=== PATIENT | male | born 1960 | race Caucasian/White ===

== ENCOUNTER 2016-12-10 04:18 | Inpatient (IN) | payer OTHER ==
[~2016-12-10] VITALS: Ht 175.3 cm; Wt 78.9 kg
--- NOTE | 2016-12-10 05:25 | NUR ---
to bed 2 ambulatory c/o R ring finger, R wrist, BLE open wound with redness and swelling. pt aaox4 no acute distress noted, resp even and unlabored. pending er md palm.
--- NOTE | 2016-12-10 05:40 | NUR ---
started sl 18g to L ac, bloodwith blood cultures drawn and sent to lab.
--- NOTE | 2016-12-10 05:40 | NUR ---
Note undone in EDM - 12/10/16 at 0601 by ROZ to bed 2 ambulatory c/o R ring finger, R wrist, BLE open wound with redness and swelling. pt aaox4 no acute distress noted, resp even and unlabored. pending er md palm.
[2016-12-10] MEDS ORDERED: IV SET PRIMARY PUMP SET 1 EA INFUS.SET MC ONE ×2 (05:51→08:40)
[2016-12-10] MEDS ORDERED: VANCOMYCIN 1 GM VIAL ONE (05:52)
[2016-12-10 06:00] LABS: BASOPHILS % (AUTO) 0.1 % (0.0-2.0); EOSINOPHILS # (AUTO) 0.1 /CMM (0.0-0.7); EOSINOPHILS % (AUTO) 1.4 % (0.0-6.0); HEMATOCRIT 36 % (39-51); HEMOGLOBIN 11.9 g/dL (13.5-17.5); LYMPHOCYTES # (AUTO) 1.1 /CMM (0.8-4.8); LYMPHOCYTES % (AUTO) 13.5 % (20.0-44.0); MEAN CORPUSCULAR HEMOGLOBIN 30 PG (26.0-33.0); MEAN CORPUSCULAR HGB CONC 33 g/dl (31.0-36.0); MEAN CORPUSCULAR VOLUME 90 fL (80-96); MONOCYTES # (AUTO) 0.9 /CMM (0.1-1.30); MONOCYTES % (AUTO) 10.6 % (2.0-12.0); NEUTROPHILS # (AUTO) 6.1 /CMM (1.8-8.9); NEUTROPHILS % (AUTO) 74.4 % (43.0-81.0); PLATELET COUNT (AUTO) 216 /CMM (150-450); RDW COEFFICIENT OF VARIATION 14.1 (11.5-15.0); WHITE BLOOD COUNT (AUTO) 8.2 K/uL (4.3-11.0)
[2016-12-10] MEDS ORDERED: VANCOMYCIN 1 GM in IV D5W 250 ML IV ONE (06:00)
[2016-12-10 06:11] LABS: CALCIUM, SERUM 8.4 mg/dL (8.5-10.1); CREATININE 0.8 mg/dL (0.6-1.3); POTASSIUM 3.1 mmol/L (3.5-5.1)
[2016-12-10 06:21] LABS: LACTIC ACID 1.2 mmol/L (0.4-2.0)
[2016-12-10] MEDS ORDERED: POTASSIUM CHLORIDE 20 MEQ TAB.PRT.SR PO ONE ×3 (06:25→06:30)
--- NOTE | 2016-12-10 06:29 | NUR ---
REPORT RECEIVED FROM ER NURSE ED
--- NOTE | 2016-12-10 06:30 | NUR ---
report called to m/s yojana wilkins. will transport pt to room 117-1
[2016-12-10] MEDS ORDERED: IV NS 0.9% 1,000 ML IV PRN (06:40)
[2016-12-10] MEDS ORDERED: MAG HYDROX/AL HYDROX/SIMETH 30 ML UDC PO PRN (07:00)
[2016-12-10] MEDS ORDERED: MAGNESIUM HYDROXIDE 30 ML UDC PO PRN (07:00)
[2016-12-10] MEDS ORDERED: ACETAMINOPHEN 325 MG TABLET PO PRN (07:00)
[2016-12-10] MEDS ORDERED: Z GUARD REMEDY 2 OZ OINT TP PRN (07:00)
[2016-12-10] MEDS ORDERED: ZOLPIDEM TARTRATE 5 MG TABLET PO PRN (07:00)
[2016-12-10] MEDS ORDERED: ONDANSETRON HCL/PF 4 MG/2 ML VIAL IVP PRN (07:00)
[2016-12-10 07:06] VITALS: BP 152/87
--- NOTE | 2016-12-10 07:08 | NUR ---
MS RN INITIAL NOTES RECEIVED PATIENT VIA WC. PATIENT A/OX3, ABLE TO MAKE NEEDS KNOWN. C/O 02/06 RIGHT ARM PAIN. NO RESPIRATORY DISTRESS NOTED. ON ROOM AIR. ORIENTED TO ROOM AND CALL LIGHT SYSTEM, PATIENT VERBALIZED UNDERSTANDING. PER REPORT PATIENT POTASSIUM WAS REPLACED AND VANCO GIVEN. SIDE RAILS UP AND LOCKED. BED KEPT AT LOWEST POSITION. CALL LIGHT KEPT WITHIN EASY REACH. WILL ENDORSE CONTINUITY OF CARE TO AM NURSE.
--- NOTE | 2016-12-10 07:42 | NUR ---
RN INITIAL NOTES RECEIVED PT AWAKE AND ALERT; ABLE TO MAKE NEEDS KNOWN. PT DENIES PAIN AT THIS TIME. SAFETY ENSURED. WILL MONITOR.
[2016-12-10] MEDS ORDERED: FEE PK DOSING 1 MIN EA MC ONE (08:32)
[2016-12-10] MEDS ORDERED: CARV25TA2 PO (08:38)
[2016-12-10] MEDS ORDERED: POTA10TA15 PO (08:38)
[2016-12-10] MEDS ORDERED: FURO20TA4 PO (08:38)
[2016-12-10] MEDS: PANTOPRAZOLE 40 MG TABLET.DR PO SCH (08:46)
[2016-12-10] MEDS ORDERED: SECONDARY IV SET 1 EA INFUS.SET MC ONE (15:09)
[2016-12-10] MEDS: VANCOMYCIN 0.75 GM in IV D5W 250 ML IV SCH ×2 (15:15→22:09)
[2016-12-10 16:00] VITALS: BP 123/71
--- NOTE | 2016-12-10 18:44 | NUR ---
RN CLOSING NOTES NO SIGNIFICANT CHANGES NOTED. NO C/O PAIN MADE. STILL ON IVF ORDERED. MEDS GIVEN. WILL ENDORSE TO NEXT SHIFT FOR CONTINUITY OF CARE IN STABLE CONDITION
--- NOTE | 2016-12-10 19:30 | NUR ---
MS RN INITIAL NOTE RECEIVED REPORT FROM PARAMJIT SWANSON. PT IN BED. A/A/O X4. LUNG SOUNDS CLEAR. BOWEL SOUNDS PRESENT. PULSES PRESENT. IV PATENT AND INTACT. AMBULATORY. BED IN LOW LOCKED POSITION. CALL LIGHT WITHIN REACH. WILL CONTINUE TO MONITOR.
[2016-12-10 20:00] VITALS: BP 125/76
[2016-12-11] MEDS ORDERED: IV NS 0.9% 250 ML IV ONE (03:46)
[2016-12-11] MEDS: HYDROCODONE/APAP 5/325MG 1 EACH TABLET PO PRN ×3 (03:51→12:50)
[2016-12-11 04:00] VITALS: BP 133/79
[2016-12-11] MEDS: VANCOMYCIN 0.75 GM in IV D5W 250 ML IV SCH (05:36)
[2016-12-11 07:52] LABS: BASOPHILS % (AUTO) 0.2 % (0.0-2.0); EOSINOPHILS # (AUTO) 0.1 /CMM (0.0-0.7); EOSINOPHILS % (AUTO) 1.5 % (0.0-6.0); HEMATOCRIT 38 % (39-51); HEMOGLOBIN 12.6 g/dL (13.5-17.5); LYMPHOCYTES # (AUTO) 0.8 /CMM (0.8-4.8); LYMPHOCYTES % (AUTO) 13.7 % (20.0-44.0); MEAN CORPUSCULAR HEMOGLOBIN 30 PG (26.0-33.0); MEAN CORPUSCULAR HGB CONC 33 g/dl (31.0-36.0); MEAN CORPUSCULAR VOLUME 90 fL (80-96); MONOCYTES # (AUTO) 0.5 /CMM (0.1-1.30); MONOCYTES % (AUTO) 8.8 % (2.0-12.0); NEUTROPHILS # (AUTO) 4.7 /CMM (1.8-8.9); NEUTROPHILS % (AUTO) 75.8 % (43.0-81.0); PLATELET COUNT (AUTO) 222 /CMM (150-450); RDW COEFFICIENT OF VARIATION 14.1 (11.5-15.0); RED BLOOD CELL COUNT(AUTO) 4.27 MIL/uL (4.5-6.0); WHITE BLOOD COUNT (AUTO) 6.2 K/uL (4.3-11.0)
[2016-12-11 08:00] VITALS: BP 129/78
[2016-12-11 08:15] LABS: THYROID STIMULATING HORMONE 0.583 uIU/mL (0.358-3.74)
[2016-12-11] MEDS: PANTOPRAZOLE 40 MG TABLET.DR PO SCH (08:50)
[2016-12-11 10:02] LABS: CALCIUM, SERUM 8.3 mg/dL (8.5-10.1); POTASSIUM 3.1 mmol/L (3.5-5.1)
[2016-12-11 10:03] LABS: CREATININE 0.9 mg/dL (0.6-1.3); MAGNESIUM 1.8 mg/dL (1.8-2.4); PHOSPHORUS 2.4 mg/dL (2.5-4.9)
[2016-12-11] MEDS ORDERED: K PHOS NEUTRAL 250 MG TABLET PO ONE (13:30)
[2016-12-11] MEDS: MORPHINE SULFATE INJ 2 MG/ML DISP.SYRIN IV PRN ×3 (14:47→23:42)
[2016-12-11 16:00] VITALS: BP 157/89
[2016-12-11] MEDS: VANCOMYCIN 1 GM in IV D5W 250 ML IV SCH ×2 (16:30→21:49)
--- NOTE | 2016-12-11 19:25 | NUR ---
RN INITIAL NOTES PT IS IN BED, A/O X4, RA SATURATING 98%, DENIES OF PAIN, NO S/SX OF DISTRESS NOTED, AFEBRILE, INDEPENDENT WITH BRP, L AC NS TKO AND PATENT, ENCOURAGE PATIENT OF SELF CARE, SIDERAILS UP, BED LOCKED AND IN LOWEST POSITION, CALL LIGHT WITHIN REACH
[2016-12-11 20:00] VITALS: BP 146/80
[2016-12-12] MEDS: MORPHINE SULFATE INJ 2 MG/ML DISP.SYRIN IV PRN ×3 (03:59→13:59)
[2016-12-12 04:00] VITALS: BP 128/72
[2016-12-12] MEDS: VANCOMYCIN 1 GM in IV D5W 250 ML IV SCH ×2 (05:51→13:59)
[2016-12-12] MEDS ORDERED: IV NS 0.9% 250 ML IV ONE (05:51)
--- NOTE | 2016-12-12 07:36 | NUR ---
RN CLOSING NOTES NO SIGNIFICANT CHANGES OVERNIGHT, AFEBRILE, INTACT, NO NEW SKIN BREAKDOWN, ALL MEDS GIVEN ORDERED AND TOLERATED IT WELL, ALL SAFETY MEASURES MAINTAINED, CALL LIGHT WITHIN REACH, ENDORSED TO AM NURSE FOR CONTINUATION OF CARE.
[2016-12-12 07:44] LABS: BASOPHILS % (AUTO) 0.6 % (0.0-2.0); EOSINOPHILS # (AUTO) 0.1 /CMM (0.0-0.7); EOSINOPHILS % (AUTO) 2.4 % (0.0-6.0); HEMATOCRIT 37 % (39-51); HEMOGLOBIN 12.1 g/dL (13.5-17.5); LYMPHOCYTES # (AUTO) 1.2 /CMM (0.8-4.8); LYMPHOCYTES % (AUTO) 22.5 % (20.0-44.0); MEAN CORPUSCULAR HEMOGLOBIN 30 PG (26.0-33.0); MEAN CORPUSCULAR HGB CONC 33 g/dl (31.0-36.0); MEAN CORPUSCULAR VOLUME 90 fL (80-96); MONOCYTES # (AUTO) 0.5 /CMM (0.1-1.30); MONOCYTES % (AUTO) 9.4 % (2.0-12.0); NEUTROPHILS # (AUTO) 3.3 /CMM (1.8-8.9); NEUTROPHILS % (AUTO) 65.1 % (43.0-81.0); PLATELET COUNT (AUTO) 226 /CMM (150-450); RDW COEFFICIENT OF VARIATION 14.1 (11.5-15.0); RED BLOOD CELL COUNT(AUTO) 4.07 MIL/uL (4.5-6.0); WHITE BLOOD COUNT (AUTO) 5.1 K/uL (4.3-11.0)
[2016-12-12 07:56] LABS: CREATININE 0.8 mg/dL (0.6-1.3); PHOSPHORUS 3.9 mg/dL (2.5-4.9); POTASSIUM 2.9 mmol/L (3.5-5.1)
[2016-12-12 08:00] VITALS: BP 136/89
[2016-12-12] MEDS: PANTOPRAZOLE 40 MG TABLET.DR PO SCH (08:14)
[2016-12-12] MEDS ORDERED: SECONDARY IV SET 1 EA INFUS.SET MC ONE (10:50)
[2016-12-12] MEDS ORDERED: POTASSIUM CL. PREMIX PERIPHER. 50 ML IV SCH (11:00)
--- NOTE | 2016-12-12 11:17 | NUR ---
WOUND CARE CONSULT: PT PRESENTS WITH WOUNDS TO RT HAND AND WRIST, HEALING AREAS TO BILATERAL CALF AREAS WITH SCABS/SCARS, PRESENT ON ADMISSION. PT INDEPENDENT WITH MOBILITY AND CONTINENT. PT REFUSED ASSESSMENT OF BACK AND BUTTOCKS. RECOMMEND SURGICAL CONSULT. RECOMMENDATIONS MADE FOR WOUND CARE AND DISCUSSED WITH NURSING STAFF. MD IN AGREEMENT WITH PLAN OF CARE. Addendum: 12/12/16 at 1118 by FRAN TOLBERT WNDNU Amended: Links added.
[2016-12-12] MEDS ORDERED: NEOMY SULF/BACITRAC ZN/POLY 15 GM TUBE TP SCH (11:30)
[2016-12-12] MEDS ORDERED: POTASSIUM CHLORIDE 20 MEQ TAB.PRT.SR PO SCH (12:30)
--- NOTE | 2016-12-12 15:20 | NUR ---
RN NOTES RECEIVED NOTICE THAT PT PULLED OUT IV, WENT IN ROOM, PT WAS EXTREMELY UPSET AND ANGRY ABOUT STAYING IN THE HOSPITAL, PT STATED"HE IS LEAVING AND NOT STAYING ANYMORE". EXPLAINED TO PT THAT HE NEEDS TO STAY TO RECEIVED ABX AND HAVE A PROCEDURE ON HIS HAND, PT STATES" HE DIDNT CARE AND WANTS TO LEAVE, NOTIFIED DR. WALKER THAT PT WANTS TO LEAVE, MD SAID HE WAS NOT CLEARED MEDICALLY, IF HE WANTS TO LEAVE NEEDS TO LEAVE AMA, EXPLAINED THAT TO PT, PT STILL STATED" HES NOT STAYING HERE AND WANTS TO LEAVE AMA, PRINTED OUT AMA PAPERWORK, PT REFUSED TO SIGN X 3, NOTIFIED MD THAT PT REFUSED TO SIGN AMA PAPERWORK, PT TOOK ALL HIS BELONGINGS AND LEFT. PT WAS IN STABLE CONDITION.
[2016-12-12] MEDS ORDERED: CARVEDILOL 12.5 MG TABLET PO SCH (21:00)
[2016-12-13] MEDS ORDERED: FUROSEMIDE 20 MG TABLET PO SCH (09:00)
[2016-12-13] MEDS ORDERED: POTASSIUM CHLORIDE 10 MEQ TABLET.SA PO SCH (09:00)
== END 2016-12-12 15:18 | disposition left against medical advice (07) | DRG 383 ==
LOC: ER 04:18 → MEDSG1 06:39
PROVIDERS: ATTEND Family Medicine
DX: L03.113 Cellulitis of right upper limb (principal); I50.32 Chronic diastolic (congestive) heart failure; S61.401A Unspecified open wound of right hand, initial encounter; F17.210 Nicotine dependence, cigarettes, uncomplicated; L03.114 Cellulitis of left upper limb; W45.8XXA Other foreign body or object entering through skin, initial encounter; Y92.9 Unspecified place or not applicable; Z59.0 Homelessness
CPT/HCPCS: 36415; 73130-TC; 80048-TC; 80061-TC; 80202-TC; 83605-TC; 83735-TC; 84100-TC; 84443-TC; 85025-TC; 85652-TC; 86140-TC; 87040-TC; 87081-TC; A4606; A6402; J2270; J3370; J3480; J7030; J7050; J7060; Z7610

== ENCOUNTER 2017-03-10 04:19 | Emergency (ER) | payer OTHER ==
[~2017-03-10] VITALS: Ht 180.3 cm; Wt 74.4 kg
[~2017-03-10 04:19] MED LIST: CARV25TA2 PO; FURO20TA4 PO; POTA10TA15 PO
--- NOTE | 2017-03-10 04:23 | NUR ---
Dr Lacy at bedside to eval.
--- NOTE | 2017-03-10 04:25 | NUR ---
TO BED 7 A 56 YO MALE [id number]/ [employer] FROM [facility], C/O SOB X 2 DAYS. HX CHF. DENIES CP. UPON ARRIVAL TO ER, PATIENT IS AAOX3, NO ACUTE DISTRESS NOTED, VSS. BREATHING EVEN AND UNLABORED, SATTING AT 98-100% ON ROOM AIR. INITIATED COMFORT MEASURES. AWAITING FOR ER MD GUERRERO.
--- NOTE | 2017-03-10 05:26 | NUR ---
Patient discharged to police custody in stable condition. Written and verbal after care instructions given. Patient verbalizes understanding of instruction. Patient is ambulatory with steady gait, no further complaints.
[2017-03-10 05:27] VITALS: BP 145/79
== END 2017-03-10 05:44 ==
LOC: ER 04:22
DX: R06.02 Shortness of breath (principal); I50.9 Heart failure, unspecified
CPT/HCPCS: 71010; 93005; 99284; A4606; Z7610